=== PATIENT | male | born 1975 | race Caucasian/White ===

== ENCOUNTER 2022-09-13 18:51 | Emergency (ER) | payer OTHER, SELFPAY ==
[2022-09-13 18:53] VITALS: BP 142/98; PULSE 93; RESP 18; TEMP 37.1; O2SAT 96; BMI 30.5
--- NOTE | 2022-09-13 19:51 | ED.NURSE ---
pt comes out of room stating relief of whatever was stuck is gone now. asks to MD Carmen carreon updated and pt asked to wait for MD to stop in.
--- NOTE | 2022-09-13 19:53 | ED.NURSE ---
in to visit pt, pt refuses to wait for dc info, pt walks out self ambulatory denying any concerns.
--- NOTE | 2022-09-14 03:01 | ED.GENADULT ---
HPI - General Adult General Chief complaint: Ear/Nose/Throat Problem Stated complaint: Something stuck in throat Time Seen by Provider: 09/13/22 19:07 History of Present Illness HPI narrative: 46-year-old man presenting to the emergency department with concern of something stuck in his throat specifically food. Was eating spaghetti tonight. No meat or at least no large meatball. Further questioning reveals he has had similar issue in the past and did have evaluation with ENT subsequently placed on a PPI which he discontinued about a year ago. Apparently does not struggle much with heartburn. Sounds like he did have an EGD or least evaluation of the esophagus and he says no strictures or other unusual findings were noted. He says he is embarrassed to have been presenting to the emergency department. Is a insurance clerk. Related Data Home Medications Medication Instructions Recorded Confirmed No Known Home Medications 09/13/22 09/13/22 Allergies Allergy/AdvReac Type Severity Reaction Status Date / Time No Known Drug Allergies Allergy Verified 09/13/22 19:03 Review of Systems Status of ROS: Reports: 6 or more systems reviewed and unremarkable except as noted in History and below PFSH PFS Social History Smoking Status: Never smoker Do you use any of these nicotine containing products: None How often do you have a drink containing alcohol: never AUDIT-C Alcohol total score: 0 Non-prescribed substance use: denies use Exam Narrative: Exam Narrative: Well-built. Clearly uncomfortable. Distracted in this. Eyes are watering at times. Breathing easily. Able to complete full sentences. There is no stridor. Lungs are clear Cardiovascular elevated rate. Oropharynx mild erythema posteriorly. No asymmetry appreciated. No swelling. Neck is supple without lymphadenopathy or other swelling. Const: Vital Signs, click to edit/add: Vital Signs - 24 hr 09/13/22 18:53 Temperature 98.7 F Pulse Rate [Right Pulse Oximeter] 93 Respiratory Rate 18 Blood Pressure [Ri ght Upper Arm] 142/98 H Pulse Oximetry 96 Oxygen Delivery Me thod Room Air Documenting provider has reviewed patient's vital signs: yes Course Course Hospital Course: I offered to anesthetize throat. Ultimately did do that. He did not appreciate it appeared the subsequent challenges swallowing. Then may begin to dry heave her gag ultimately I was not present when he snorted upper produced a 3/4 inch length of spaghetti noodle which he photographed as present in the emesis bag. He felt like this had been relieved from the far posterior left nasopharynx. This resulted in him not having any further sensation of foreign body. Vital Signs Vital signs: Initial Vital Signs Temperature 98.7 F 09/13/22 18:53 Temperature Source Temporal Artery Scan 09/13/22 18:53 Pulse Rate 93 09/13/22 18:53 Respiratory Rate 18 09/13/22 18:53 Blood Pressure 142/98 H 09/13/22 18:53 Blood Pressure Mean 112 09/13/22 18:53 Blood Pressure Position Sitting 09/13/22 18:53 Pulse Oximetry 96 09/13/22 18:53 Oxygen Delivery Method 09/13/22 18:53 Vital Signs Temperature 98.7 F 09/13/22 18:53 Pulse Rate 93 09/13/22 18:53 Respiratory Rate 18 09/13/22 18:53 Blood Pressure 142/98 H 09/13/22 18:53 Pulse Oximetry 96 09/13/22 18:53 Oxygen Delivery Method 09/13/22 18:53 Temperature 98.7 F 09/13/22 18:53 Pulse Rate 93 09/13/22 18:53 Respiratory Rate 18 09/13/22 18:53 Blood Pressure 142/98 H 09/13/22 18:53 Pulse Oximetry 96 09/13/22 18:53 Oxygen Delivery Method 09/13/22 18:53 Medical Decision Making MDM Narrative Medical decision making narrative: Given a cup of water and he is able to keep this down without difficulty. Continues to complain of sensation of something in the left low neck and then alternatively in the posterior left nasopharynx. Looking again with nasal speculum not able to visualize anything. I do offer anesthetic spray. This does not seem to make much difference after given. My initial assessment is the seems to be some degree of globus. Mr. Moran starts to attempt to bring up what he feels is present in his throat or posterior nasopharynx. Does try heave/retch gag in the process. I depart to allow him this time. Return to find that he is markedly improved and has a picture of about an inch of noodle that he has managed to extract. He reports feeling much better. Clearly is more calm and comfortable. Discharge Plan Discharge Clinical Impression: Foreign body in oropharynx Patient Disposition: Home, Self-Care Condition: Improved Additional Instructions: Soft foods over the next 24-48 hours. Hydrate. Prescriptions: No Action No Known Home Medications Follow Up/Referrals: Eli Rogers PA-C [Primary Care Provider] - Stand Alone Forms: Complete [employer] Info Instructions
== END 2022-09-13 20:06 | disposition home or self-care (01) ==
PROVIDERS: Emergency Provider Family Medicine; PCP Physician Assistant Medical
DX: T17.228A Food in pharynx causing other injury, initial encounter (principal); X58.XXXA Exposure to other specified factors, initial encounter; Y93.89 Activity, other specified; Y92.9 Unspecified place or not applicable; Y99.8 Other external cause status
CPT/HCPCS: 99282; 99283